=== PATIENT | female | born 1970 | race Caucasian/White ===

== ENCOUNTER → 2018-06-19 | Outpatient (CLI) | payer OTHER ==
--- NOTE | 2018-06-19 16:53 | RADIOLOGY REPORT (SQ) ---
EXAM DESCRIPTION: FINGERS LEFT COMPLETED DATE/TIME: 06/19/2018 4:36 pm REASON FOR STUDY: PAIN OF LEFT MIDDLE FINGER M79.645 PAIN IN LEFT FINGER(S) COMPARISON: None. NUMBER OF VIEWS: Three views. TECHNIQUE: AP, lateral, and oblique images acquired of the left third finger. LIMITATIONS: None. FINDINGS: MINERALIZATION: Normal. BONES: There is a dislocation of the 3rd digit at the level of the PIP joint. No associated fracture is identified. SOFT TISSUES: No soft tissue swelling. No foreign body. OTHER: No other significant finding. IMPRESSION: Dislocation of the 3rd digit at the level of the PIP joint. COMMENT: SITE OF TRAUMA/COMPLAINT MARKED/STAMP COMPLETED: Yes TECHNICAL DOCUMENTATION: JOB ID: [id number] [employer]- All Rights Reserved Reading location - IP/workstation name: [email or web address]
== END ==
LOC: OD 16:20
PROVIDERS: ATTEND Nurse Practitioner Acute Care
DX: M79.645 Pain in left finger(s) (principal); S63.253A Unspecified dislocation of left middle finger, initial encounter; X58.XXXA Exposure to other specified factors, initial encounter